=== PATIENT | female | born 1970 | race Caucasian/White ===

== ENCOUNTER → 2017-12-21 | Outpatient (CLI) | payer OTHER ==
[~2017-12-21] MED LIST: BUPR300T4 PO; IRON1TAB60 PO; LEVO75TA5 PO; VITA1CAP PO
[2017-12-21 09:32] LABS: BASOPHILS # (AUTO) 0.02 x10^3/uL (0-0.1); BASOPHILS % (AUTO) 0 % (0-1); EOSINOPHILS # (AUTO) 0.14 x10^3/uL (0-0.4); EOSINOPHILS % (AUTO) 3 % (1-7); LYMPHOCYTES # (AUTO) 1.87 x10^3/uL (1-3.4); LYMPHOCYTES % (AUTO) 32 % (22-44); MD NO; MEAN CORPUSCULAR HEMOGLOBIN 27.2 pg (27.0-34.8); MEAN CORPUSCULAR HGB CONC 33.4 g/dL (32.4-35.8); MEAN CORPUSCULAR VOLUME 81.6 fL (80-100); MEAN PLATELET VOLUME 7.4 fL (7.4-10.4); MONOCYTES # (AUTO) 0.31 x10^3/uL (0.2-0.8); MONOCYTES % (AUTO) 5 % (2-9); NEUTROPHILS # (AUTO) 3.43 x10^3/uL (1.8-6.8); NEUTROPHILS % (AUTO) 60 % (42-75); PLATELET COUNT 383 x10^3/uL (130-400); RED BLOOD COUNT 4.94 x10^6/uL (3.82-5.3); RED CELL DISTRIBUTION WIDTH 14.1 % (9.6-15.2)
[2017-12-21 09:41] LABS: INTERNATIONAL NORMALIZED RATIO 0.92 (0.93-1.1); PROTHROMBIN TIME 9.6 Seconds (9.6-11.5)
== END | disposition home or self-care (01) ==
LOC: STAR 08:15
PROVIDERS: ATTEND Surgery
DX: Z01.818 Encounter for other preprocedural examination (principal); Z80.3 Family history of malignant neoplasm of breast
CPT/HCPCS: 36415; 85025; 85610; 85730

== ENCOUNTER 2017-12-29 13:45 | Inpatient (IN) | payer OTHER ==
[~2017-12-29] VITALS: Ht 165.1 cm; Wt 97.3 kg
[2017-12-29] MEDS ORDERED: LACTATED RINGERS 1,000 ML IV SCH (14:01)
[2017-12-29] MEDS ORDERED: ONDANSETRON 2MG/ML, 2ML IVPush PRN ×2 (14:30→22:00)
[2017-12-29] MEDS ORDERED: hydrALAzine 20 MG/ML, 1ML IV PRN (14:30)
[2017-12-29] MEDS ORDERED: SCOPOLAMINE PATCH, 1.5MG PATCH.TD72 TD ONE (14:30)
[2017-12-29] MEDS ORDERED: GABAPENTIN 300 MG CAPSULE PO ONE (14:30)
[2017-12-29] MEDS ORDERED: FENTANYL PF 100 MCG/2ML IV PRN (14:30)
[2017-12-29] MEDS ORDERED: MEPERIDINE/PF 25MG/0.5ML IVPush PRN (14:30)
[2017-12-29] MEDS ORDERED: ALBUTEROL SULFATE 2.5 MG/3 ML NPPB PRN (14:30)
[2017-12-29] MEDS ORDERED: PROMETHAZINE 25 MG/ML, 1ML IV PRN (14:30)
[2017-12-29] MEDS ORDERED: LABETALOL 5MG/ML, 20ML IV PRN (14:30)
[2017-12-29] MEDS ORDERED: HYDROmorphone 1 MG/ML, 1ML IV PRN (14:30)
[2017-12-29] MEDS ORDERED: EPHEDRINE 50 MG/ML, 1ML IVPush PRN (14:30)
[2017-12-29] MEDS ORDERED: OXYcodone IR 5MG TABLET PO ONE (14:30)
[2017-12-29] MEDS ORDERED: ACETAMINOPHEN 500 MG TABLET PO ONE (14:30)
[2017-12-29] MEDS ORDERED: METOPROLOL 1 MG/ML, 5ML IV PRN (14:30)
[2017-12-29] MEDS ORDERED: OXYcodone 5 MG/5 ML ORAL.SOL UDC PO PRN (14:30)
[2017-12-29] MEDS ORDERED: EPINEPHRINE 1 MG/ML, 1ML ONE (14:59)
[2017-12-29] MEDS ORDERED: BUPIVACAINE/PF 0.5% ONE (14:59)
[2017-12-29] MEDS ORDERED: BUPIVACAINE 0.25% ONE (14:59)
[2017-12-29] MEDS ORDERED: [UNRECOGNIZED DRUG - OTHER] IV ONE (15:00)
[2017-12-29] MEDS ORDERED: ISOSULFAN BLUE 10 MG/ML, 5ML IV ONE (15:00)
[2017-12-29] MEDS ORDERED: VWF IV ONE (15:00)
[2017-12-29] MEDS ORDERED: MIDAZOLAM 1 MG/ML, 2ML ONE (15:25)
[2017-12-29] MEDS ORDERED: FENTANYL PF 250 MCG/5ML ONE (15:26)
[2017-12-29] MEDS ORDERED: PROPOFOL 100 ML ONE (15:28)
[2017-12-29] MEDS ORDERED: DEXAMETHASONE 4 MG/ML, 5ML ONE (16:13)
[2017-12-29] MEDS ORDERED: ROCURONIUM 10 MG/ML,10ML ONE (16:13)
[2017-12-29] MEDS ORDERED: CEFAZOLIN 1,000 MG ONE (16:13)
[2017-12-29] MEDS ORDERED: ONDANSETRON ODT 8 MG ONE (16:13)
[2017-12-29 20:00] VITALS: BP 111/77
[2017-12-29] MEDS ORDERED: MORPHINE SULFATE 4 MG/ML, 1ML IVPush PRN (22:00)
[2017-12-29] MEDS ORDERED: OXYcodone/APAP 5/325MG TABLET PO PRN (22:00)
[2017-12-29] MEDS ORDERED: HYDROmorphone 2 MG/ML, 1ML IV PRN (22:00)
[2017-12-30] VITALS (7 sets, daily range): BP systolic 87–107; BP diastolic 50–89
[2017-12-30] MEDS: CEFAZOLIN PMX 1GM/50ML 50 ML IV SCH ×3 (00:40→14:25)
[2017-12-30] MEDS: ONDANSETRON ODT 4 MG PO PRN (02:03)
[2017-12-30] MEDS: LACTATED RINGERS 1,000 ML IV SCH ×4 (02:06→20:33)
[2017-12-30] MEDS ORDERED: [UNRECOGNIZED DRUG - OTHER] IV ONE (04:00)
[2017-12-30] MEDS ORDERED: VWF IV ONE (04:00)
[2017-12-30] MEDS: LEVOTHYROXINE 75 MCG TABLET PO SCH (05:35)
[2017-12-30] MEDS: MULTIVITS,STRESS FORMULA 1 TABLET PO SCH (08:32)
[2017-12-30] MEDS: MULTIVITAMINS WITH IRON TABLET PO SCH (08:32)
[2017-12-30] MEDS: BUPROPION 300 MG HOMEMEDPO SCH (08:33)
[2017-12-30] MEDS: HYDROcodone/APAP 5/325 TABLET PO PRN ×3 (09:36→19:54)
[2017-12-30] MEDS: [UNRECOGNIZED DRUG - OTHER] IV SCH (17:32)
[2017-12-30] MEDS: VWF IV SCH (17:32)
[2017-12-30] MEDS ORDERED: LACTATED RINGERS 1,000 ML IVBOLUS ONE (18:30)
[2017-12-31 00:02] VITALS: BP 95/60
[2017-12-31] MEDS: HYDROcodone/APAP 5/325 TABLET PO PRN ×5 (00:06→22:32)
[2017-12-31] MEDS: VWF IV SCH ×2 (04:08→17:10)
[2017-12-31] MEDS: [UNRECOGNIZED DRUG - OTHER] IV SCH ×2 (04:08→17:10)
[2017-12-31] MEDS: LACTATED RINGERS 1,000 ML IV SCH (04:08)
[2017-12-31] MEDS: LEVOTHYROXINE 75 MCG TABLET PO SCH (06:06)
[2017-12-31 08:25] VITALS: BP 92/57
[2017-12-31] MEDS: BUPROPION 300 MG HOMEMEDPO SCH (09:00)
[2017-12-31] MEDS: MULTIVITS,STRESS FORMULA 1 TABLET PO SCH (09:18)
[2017-12-31] MEDS: MULTIVITAMINS WITH IRON TABLET PO SCH (09:18)
[2017-12-31 10:24] LABS: BASOPHILS # (AUTO) 0.01 x10^3/uL (0-0.1); BASOPHILS % (AUTO) 0 % (0-1); EOSINOPHILS # (AUTO) 0.05 x10^3/uL (0-0.4); EOSINOPHILS % (AUTO) 1 % (1-7); LYMPHOCYTES # (AUTO) 1.36 x10^3/uL (1-3.4); LYMPHOCYTES % (AUTO) 18 % (22-44); MD NO; MEAN CORPUSCULAR HEMOGLOBIN 27.3 pg (27.0-34.8); MEAN CORPUSCULAR HGB CONC 33.2 g/dL (32.4-35.8); MEAN CORPUSCULAR VOLUME 82.1 fL (80-100); MEAN PLATELET VOLUME 7.6 fL (7.4-10.4); MONOCYTES # (AUTO) 0.64 x10^3/uL (0.2-0.8); MONOCYTES % (AUTO) 9 % (2-9); NEUTROPHILS # (AUTO) 5.39 x10^3/uL (1.8-6.8); NEUTROPHILS % (AUTO) 72 % (42-75); PLATELET COUNT 233 x10^3/uL (130-400); RED BLOOD COUNT 3.09 x10^6/uL (3.82-5.3)
[2017-12-31 10:25] LABS: ANION GAP 5 mmol/L (5-15); CALCIUM 7.9 mg/dL (8.5-10.1); CHLORIDE 106 mmol/L (98-107); CREATININE 0.63 mg/dL (0.55-1.02)
[2017-12-31 13:07] VITALS: BP 103/64
[2017-12-31 15:50] VITALS: BP 98/62
[2017-12-31] MEDS: ONDANSETRON ODT 4 MG PO PRN ×2 (16:58→22:32)
[2017-12-31 18:34] VITALS: BP 102/64
[2018-01-01] VITALS (7 sets, daily range): BP systolic 95–104; BP diastolic 54–69
[2018-01-01] MEDS: VWF IV SCH ×2 (04:20→17:25)
[2018-01-01] MEDS: [UNRECOGNIZED DRUG - OTHER] IV SCH ×2 (04:20→17:25)
[2018-01-01] MEDS: HYDROcodone/APAP 5/325 TABLET PO PRN ×6 (05:30→21:44)
[2018-01-01] MEDS: LEVOTHYROXINE 75 MCG TABLET PO SCH (05:55)
[2018-01-01] MEDS: MULTIVITAMINS WITH IRON TABLET PO SCH (08:17)
[2018-01-01] MEDS: MULTIVITS,STRESS FORMULA 1 TABLET PO SCH (08:17)
[2018-01-01] MEDS: BUPROPION 300 MG HOMEMEDPO SCH (08:18)
[2018-01-01] MEDS: ONDANSETRON ODT 4 MG PO PRN (18:50)
[2018-01-02] MEDS: HYDROcodone/APAP 5/325 TABLET PO PRN ×3 (01:54→10:01)
[2018-01-02 02:04] VITALS: BP 95/60
[2018-01-02] MEDS: LEVOTHYROXINE 75 MCG TABLET PO SCH (05:50)
[2018-01-02] MEDS ORDERED: CEPH-367 PO (07:18)
[2018-01-02] MEDS ORDERED: OXYC-302 PO (07:19)
[2018-01-02] MEDS: BUPROPION 300 MG HOMEMEDPO SCH (07:20)
[2018-01-02] MEDS: MULTIVITAMINS WITH IRON TABLET PO SCH (07:23)
[2018-01-02] MEDS: MULTIVITS,STRESS FORMULA 1 TABLET PO SCH (07:23)
[2018-01-02 07:31] VITALS: BP 94/60
[2018-01-02] MEDS: ONDANSETRON ODT 4 MG PO PRN (07:55)
[2018-01-02] MEDS ORDERED: PNEUMOCOCCAL 23 VACCINE IM-VACC ONE (09:00)
== END 2018-01-02 12:18 | disposition home or self-care (01) | DRG 584 ==
LOC: OR 13:45 → 4NOR 19:54 → OR 21:00 → OBSVTOIN 21:01 → 4NOR 21:01 → DCLOUNGE 01-02 12:18
PROVIDERS: ADMIT Surgery; ATTEND Surgery
PROC: 0HTV0ZZ Resection of Bilateral Breast, Open Approach (ICD-10-PCS; principal; 2017-12-29 16:00)
PROC: 0HUV0JZ Supplement Bilateral Breast with Synthetic Substitute, Open Approach (ICD-10-PCS; 2017-12-29 16:00)
DX: Z40.01 Encounter for prophylactic removal of breast (principal); D68.0 Von Willebrand disease; E66.9 Obesity, unspecified; Z80.3 Family history of malignant neoplasm of breast; Z90.710 Acquired absence of both cervix and uterus; Z68.35 Body mass index [BMI] 35.0-35.9, adult
CPT/HCPCS: 36415; 80048; 85014; 85018; 85025; 86850; 86900; 88307; 90732; C1729; C1789; J0171; J0690; J1100; J2250; J2704; J3010; J3490; Q0162; J7120; J7187